=== PATIENT | female | born 1985 | race Caucasian/White ===

== ENCOUNTER → 2018-07-21 | Outpatient (CLI) | payer MEDICAID ==
[~2018-07-21] MED LIST: LISINOPRIL; novolog; prestique
== END ==
LOC: COL.CARD 06:39
DX: O24.011 Pre-existing type 1 diabetes mellitus, in pregnancy, first trimester (principal)

== ENCOUNTER 2019-01-19 12:22 | Inpatient (IN) | payer BC, MEDICAID ==
[~2019-01-19] VITALS: Ht 175.3 cm; Wt 120.5 kg
[2019-01-19] VITALS (18 sets, daily range): BP systolic 120–152; BP diastolic 58–82; PULSE 57–83; TEMP 97.6–98
[2019-01-19 13:18] LABS: BASO % 0.3 % (0.0-2.0); EOS # 0.1 (0.0-0.7); EOS % 0.8 % (0-4.0); GRAN % 71.7 % (42.2-75.2); HEMATOCRIT 38.8 % (37.0-47.0); HEMOGLOBIN 12.4 g/dl (12.5-16.0); LYMPH # 2.1 (1.2-3.4); LYMPH % 21.9 % (20.0-51.0); MEAN CELL VOLUME 80 fl (80.0-100.0); MEAN CORPUSCULAR HEMOGLOBIN 26 pg (27.0-31.0); MEAN CORPUSCULAR HGB CONC 32 g/dl (33.0-37.0); MEAN PLATELET VOLUME 11.8 fl (7.4-10.4); MONO # 0.5 (0.1-0.6); PLATELET COUNT 223 K/mm3 (130-400); RED BLOOD COUNT 4.84 M/mm3 (4.10-5.30); REDCELL DISTRIBUTION WIDTH-CV 13.7 % (11.5-14.5)
--- NOTE | 2019-01-19 16:07 | NUR ---
1440- PATIENT MOVED FROM PACU TO NURSERY TO HOLD . PATIENT RESTING IN BED HOLDING
[2019-01-19] MEDS ORDERED: IBU600 MG PO (19:00)
[2019-01-19] MEDS ORDERED: PERCOCET 325 MG1 TA2 PO (19:01)
[2019-01-20 00:20] VITALS: BP 138/70; PULSE 88; TEMP 97.7
[2019-01-20 06:45] VITALS: BP 129/63; PULSE 73; TEMP 98
[2019-01-20 07:51] LABS: HEMOGLOBIN 10.9 g/dl (12.5-16.0)
[2019-01-20 07:58] LABS: HEMATOCRIT 33.2 % (37.0-47.0)
== END 2019-01-20 10:15 | disposition home or self-care (01) | DRG 787 ==
LOC: LDRO 12:22 → LDR 12:22 → LDRO 12:58 → LDR 12:59 → OB 15:13
PROVIDERS: ADMIT Obstetrics & Gynecology
PROC: 10D00Z1 Extraction of Products of Conception, Low, Open Approach (ICD-10-PCS; principal; 2019-01-19)
DX: O24.02 Pre-existing type 1 diabetes mellitus, in childbirth (principal); E72.12 Methylenetetrahydrofolate reductase deficiency; O99.283 Endocrine, nutritional and metabolic diseases complicating pregnancy, third trimester; O76 Abnormality in fetal heart rate and rhythm complicating labor and delivery; E10.9 Type 1 diabetes mellitus without complications; O34.211 Maternal care for low transverse scar from previous cesarean delivery; O99.213 Obesity complicating pregnancy, third trimester; Z3A.37 37 weeks gestation of pregnancy; Z37.0 Single live birth; Z79.4 Long term (current) use of insulin
CPT/HCPCS: J0690; J1815; J1885; J2370; J2405; J2590; J3010; J7120